=== PATIENT | female | born 1965 | race Caucasian/White ===

== ENCOUNTER 2016-10-08 08:38 | Outpatient (CLI) | payer OTHER ==
--- NOTE | 2016-10-08 14:54 | DIAGNOSTIC IMAGING REPORT ---
PROCEDURE: MR LUMBAR SPINE W/O CONTRAST INDICATION: Increasing low back pain. TECHNIQUE: Noncontrast T1, T2, and STIR sagittal images. T1 and T2 axial images. COMPARISON: Comparison made radiographs of the lumbar spine on 08/09/2016. FINDINGS: Conus is normal. There is a transitional vertebra at the lumbosacral junction which will be labeled a partially lumbarized S1 (with aortic bifurcation at L4-5). This is in contradistinction to prior radiographs to which described six lumbar vertebral bodies (although the latter could be accurate depending on the number of thoracic vertebrae). L1-2: Normal appearance. L2-3: Normal appearance. L3-4: Minimally bulging disc. L4-5: Moderate facet disease and mildly bulging disc results in mild narrowing of the central canal and lateral recesses. L5-S1: There is severe facet disease (left greater than right), with grade 1 (3 mm) degenerative listhesis of L5 on S1, superimposed on a mildly bulging disc. No spondylolysis defects are identified (as suggested on prior radiographs). Overall, these changes result in moderate narrowing of the left lateral recess and left neural foramen with mild narrowing the right lateral recess and right neural foramen. S1-2: Transitional segment. Mild facet disease. IMPRESSION: 1. There is a transitional segment at the lumbosacral junction which is labeled a partially lumbarized S1 for purposes of this study (in contradistinction to prior radiographs, which described six lumbar vertebral bodies). 2. Moderate to severe degenerative changes of the lower lumbar facet joints. 3. Moderate facet disease and mildly bulging disc at L4-5, but little evidence of significant canal compromise. 4. Severe facet disease at L5-S1 (left greater than right) with mildly bulging disc results in grade 1 (3 mm) degenerative listhesis of L5 on S1 (no pars defects as described on prior radiographs). Overall, these changes result in moderate narrowing of the left lateral recess and left neural foramen. Consider left L5 or left S1 radiculopathy.
== END 2016-10-08 23:00 ==
LOC: MRI SRH 08:38
DX: M51.27 Other intervertebral disc displacement, lumbosacral region (principal); M47.817 Spondylosis without myelopathy or radiculopathy, lumbosacral region